=== PATIENT | female | born 1970 | race Caucasian/White ===

== ENCOUNTER 2017-06-27 07:05 | Emergency (ER) | payer MEDICARE, MEDICAID ==
--- NOTE | 2017-06-27 07:55 | ER Document Report ---
ED General - General Chief Complaint: Psych Problem Stated Complaint: MEDICAL CLEARANCE Time Seen by Provider: 06/27/17 07:33 Notes: Patient is a 46-year-old female presents emergency department requesting medical clearance that she can go pursue outpatient detox at [place]. Patient states that her last use of anything was approximately 4 AM. Patient states that she has a history of using opiates, heroin, methadone, methamphetamine, marijuana. Patient states that she used pain pills at approximately 2 AM, math at 4 AM and her last use of marijuana was 3-4 days ago. Patient states that she has not used heroin for about 3-4 days as well. At this time she denies any headache, vision changes, nausea, vomiting, abdominal pain, diarrhea, constipation, urinary frequency, hematuria, pyuria, vaginal discharge. She admits to mild discomfort on the left side of her vagina that has been there for approximately 4 days with mild tenderness. She denies any drainage. Patient denies any concern for sexually transmitted disease. She is sexually active with her only. Past medical history significant for history of psoriatic arthritis With prior immunocompromise requiring intubation and ICU stay for approximately 2 months in [place]. She also admits to history of kidney stones, history of pneumothorax requiring chest tube on the left side. Past surgical history significant for lithotripsy, tubal ligation, previous trach and PEG Social history significant for current tobacco user, denies any alcohol. Please see above for current drug use. TRAVEL OUTSIDE OF THE [place] IN LAST 30 DAYS: No - Related Data Allergies/Adverse Reactions: No Known Allergies Allergy (Verified 04/17/14 12:18) Past Medical History - Social History Smoking Status: Current Every Day Smoker Family History: Reviewed & Not Pertinent Patient has suicidal ideation: No Patient has homicidal ideation: No - Past Medical History Cardiac Medical History: Reports: Hx Coronary Artery Disease, Hx Heart Attack, Hx Hypercholesterolemia, Hx Hypertension Denies: Hx Pulmonary Embolism Pulmonary Medical History: Reports: Hx COPD, Hx Pneumonia Endocrine Medical History: Reports: Hx Diabetes Mellitus Type 2 - controlled without meds Renal/ Medical History: Denies: Hx Peritoneal Dialysis Musculoskeltal Medical History: Reports Hx Arthritis - psoriatic Psychiatric Medical History: Reports: Hx Depression Past Surgical History: Reports: Hx Orthopedic Surgery - right foot, Hx Tubal Ligation - Immunizations Hx Diphtheria, Pertussis, Tetanus Vaccination: Yes Review of Systems - Review of Systems Notes: REVIEW OF SYSTEMS: CONSTITUTIONAL : Denies fever, chills, or sweats. Denies recent illness. EENT: Denies eye, ear, throat, or mouth pain or symptoms. Denies nasal or sinus congestion or discharge. Denies throat, tongue, or mouth swelling or difficulty swallowing. CARDIOVASCULAR: Denies chest pain. Denies palpitations or racing or irregular heart beat. Denies ankle edema. RESPIRATORY: Denies cough, cold, or chest congestion. Denies shortness of breath, difficulty breathing, or wheezing. GASTROINTESTINAL: Denies abdominal pain or distention. Denies nausea, vomiting , or diarrhea. Denies blood in vomitus, stools, or per rectum. Denies black, tarry stools. Denies constipation. GENITOURINARY: Denies difficulty urinating, painful urination, burning, frequency, blood in urine, or discharge. FEMALE GENITOURINARY: Denies vaginal bleeding, heavy or abnormal periods, irregular periods. Denies vaginal discharge or odor. MUSCULOSKELETAL: Denies any muscle spasms, difficulty walking, extremity pain SKIN: Denies rash, lesions or sores. HEMATOLOGIC : Denies easy bruising or bleeding. LYMPHATIC: Denies swollen, enlarged glands. NEUROLOGICAL: Denies confusion or altered mental status. Denies passing out or loss of consciousness. Denies dizziness or lightheadedness. Denies headache. Denies weakness or paralysis or loss of use of either side. Denies problems with gait or speech. Denies sensory loss, numbness, or tingling. Denies seizures. PSYCHIATRIC: Denies anxiety or stress. Denies depression, suicidal ideation, or homicidal ideation. ALL OTHER SYSTEMS REVIEWED AND NEGATIVE. Dictation was performed using [employer] voice recognition software Physical Exam - Vital signs Vitals: Temp Pulse Resp BP Pulse Ox 97.9 F 101 H 16 180/97 H 98 06/27/17 07:20 06/27/17 07:20 06/27/17 07:20 06/27/17 07:20 06/27/17 07:20 - Notes Notes: PHYSICAL EXAM GENERAL: Alert, interacts well. HEAD: Normocephalic, atraumatic. EYES: Pupils equal, round, and reactive to light. Extraocular movements intact. ENT: Oral mucosa moist, tongue midline. NECK: Full range of motion. Supple. Trachea midline. LUNGS: Clear to auscultation bilaterally, no wheezes, rales, or rhonchi. No respiratory distress. HEART: Regular rate and rhythm. No murmurs, gallops, or rubs. ABDOMEN: Soft, nondistended, nontender. No guarding, rebound, or rigidity.. Bowel sounds present in all 4 quadrants. EXTREMITIES: Moves all 4 extremities spontaneously. No edema, radial and dorsalis pedis pulses 2/4 bilaterally. No cyanosis. NEUROLOGICAL: Alert and oriented x4. Normal speech. PSYCH: Normal affect, normal mood. SKIN: Warm, dry, normal turgor. No rashes or lesions noted. Course - Re-evaluation Re-evalutation: 06/27/17 09:45 Patient is a 46-year-old female who is hemodynamically stable, no acute distress and afebrile. Mild elevation of white blood cell count which could be consistent with patient's history of psoriatic arthritis. No evidence of left shift. No evidence of anemia. CMP without any evidence of electrolyte abnormalities, renal/liver dysfunction. Urinalysis without any evidence of dehydration and urinary tract infection. Tox screen positive for methadone and likely amphetamine but there was conflicting substances of sent for confirmation. Negative for opiates and marijuana. Otherwise negative. At this time patient is not at risk at harming herself or others and is requesting to pursue outpatient treatment for her substance abuse. Patient's friend is at the bedside and able to take her to [facility]. I have contacted [facility] who will evaluate patient upon arrival for treatment. Case discussed with supervising physician Dr. Metzger stated he agrees with plan and patient is stable for discharge. - Vital Signs Vital signs: Temp Pulse Resp BP Pulse Ox 97.6 F 97 16 185/95 H 98 06/27/17 10:36 06/27/17 10:36 06/27/17 10:36 06/27/17 10:36 06/27/17 10:36 - Laboratory Result Diagrams: 06/27/17 08:25 06/27/17 08:25 Laboratory results interpreted by me: 06/27/17 06/27/17 08:25 08:25 WBC 12.1 H Hgb 11.9 L MCV 73 L MCH 23.7 L RDW 19.7 H Absolute Neutrophils 8.5 H Chloride 109 H Salicylates < 1.0 L Acetaminophen < 10 L - EKG Interpretation by Me EKG shows normal: Sinus rhythm Rate: Normal Rhythm: NSR When compared to previous EKG there are: No significant change Discharge - Discharge Clinical Impression: Substance abuse Condition: Good Disposition: HOME, SELF-CARE Instructions: Ampetamine Abuse ([facility]), Narcotic Abuse ([facility]) Additional Instructions: You have been evaluated today for medical clearance so that you can pursue outpatient detox treatment. At this time there is no evidence of medical diagnosis to prohibit you at this time. Please go to [facility] upon discharge. Forms: Elevated Blood Pressure
[2017-06-27 08:38] LABS: ABSOLUTE BASOPHILS # (AUTO) 0.1 10^3/uL (0.0-0.2); ABSOLUTE EOSINOPHILS # (AUTO) 0.2 10^3/uL (0.0-0.6); ABSOLUTE LYMPHOCYTES (AUTO) 2.8 10^3/uL (0.5-4.7); ABSOLUTE MONOCYTES (AUTO) 0.5 10^3/uL (0.1-1.4); ABSOLUTE NEUT (AUTO) 8.5 10^3/uL (1.7-8.2); BASOPHILS % (AUTO) 0.9 % (0-2); EOSINOPHILS % (AUTO) 1.4 % (0-6); HEMATOCRIT 36.9 % (36.0-47.0); HEMOGLOBIN 11.9 g/dL (12.0-15.5); HGB HCT DIFFERENCE -1.2; LYMPHOCYTES % (AUTO) 23.2 % (13-45); MEAN CORPUSCULAR HEMOGLOBIN 23.7 pg (27.0-33.4); MEAN CORPUSCULAR HGB CONC 32.3 g/dL (32.0-36.0); MEAN CORPUSCULAR VOLUME 73 fl (80-97); MONOCYTES % (AUTO) 4.2 % (3-13); RED BLOOD COUNT 5.03 10^6/uL (3.72-5.28); RED CELL DISTRIBUTION WIDTH 19.7 % (11.5-14.0); SEGMENTED NEUTROPHILS % (AUTO) 70.3 % (42-78); WHITE BLOOD COUNT 12.1 10^3/uL (4.0-10.5)
[2017-06-27 08:50] LABS: APPEARANCE,URINE CLEAR; BILIRUBIN,URINE NEGATIVE (NEGATIVE); GLUCOSE, URINE NEGATIVE (NEGATIVE); KETONES,URINE NEGATIVE (NEGATIVE); LEUKOCYTE ESTERASE,URINE NEGATIVE (NEGATIVE); NITRITE,URINE NEGATIVE (NEGATIVE); PROTEIN,URINE NEGATIVE (NEGATIVE); UROBILINOGEN,URINE NEGATIVE mg/dL (<2.0)
[2017-06-27 09:01] LABS: ALANINE AMINOTRANSFERASE 18 U/L (9-52); ALBUMIN 4.4 g/dL (3.5-5.0); ALKALINE PHOSPHATASE 103 U/L (38-126); ANION GAP 12 (5-19); ASPARTATE AMINO TRANSFERASE 15 U/L (14-36); BILIRUBIN,DIRECT 0.3 mg/dL (0.0-0.4); BILIRUBIN,TOTAL 0.3 mg/dL (0.2-1.3); BLOOD UREA NITROGEN 20 mg/dL (7-20); CALCIUM 10.1 mg/dL (8.4-10.2); CARBON DIOXIDE 22 mmol/L (22-30); CHLORIDE 109 mmol/L (98-107); CREATININE RESULT 0.94 mg/dL (0.52-1.25); GLUCOSE 97 mg/dL (75-110); TOTAL PROTEIN 6.9 g/dL (6.3-8.2)
[2017-06-27 09:02] LABS: ALCOHOL < 10 mg/dL (NONE DETECTED)
[2017-06-27 09:05] LABS: URINE BARBITURATES SCREEN NEGATIVE; URINE METHADONE SCREEN UNCONFIRMED POSITIVE; URINE OPIATES LOW NEGATIVE; URINE PHENCYCLIDINE SCREEN NEGATIVE
--- NOTE | 2017-06-27 10:17 | EKG REPORT ---
SEVERITY:- BORDERLINE ECG - SINUS RHYTHM LVH BY VOLTAGE : Confirmed by: Otto Schulz 27-Jun-2017 10:15:54
[2017-06-27 10:37] VITALS: BP 185/95
== END 2017-06-27 10:37 | disposition home or self-care (01) ==
LOC: ER 07:05
DX: F19.10 Other psychoactive substance abuse, uncomplicated (principal); I25.10 Atherosclerotic heart disease of native coronary artery without angina pectoris; E78.00 Pure hypercholesterolemia, unspecified; I10 Essential (primary) hypertension; J44.9 Chronic obstructive pulmonary disease, unspecified; E11.9 Type 2 diabetes mellitus without complications; I25.2 Old myocardial infarction; Z98.51 Tubal ligation status; Z87.442 Personal history of urinary calculi
CPT/HCPCS: 93005; 99284; 36415; 80307 ×5; 84703; 85025; 80053; 81001; 93010; G0480